=== PATIENT | male | born 1960 | race Caucasian/White ===

== ENCOUNTER 2020-08-13 17:00 | Emergency (ER) | payer OTHER, SELFPAY ==
[2020-08-13 17:00] VITALS: BP 127/65; PULSE 104; RESP 18; TEMP 35.8; O2SAT 96; BMI 31.3
--- NOTE | 2020-08-13 18:21 | ED.VIS.BACK ---
HPI History of Present Illness Chief Complaint: Back Informant: patient Onset/Context/Timing Onset: Days Context: Gradual Onset Timing: Intermittent Quality: Aching Location: Lumbar Current Severity: Moderate Maximum Severity: Severe Worsened by: improves with Movement Relieved by: Nothing Narrative Narrative: The patient is a 60-year-old male with history of chronic back pain who is on disability from back problems presents with increasing back pain. Patient states over the past 3 days, he had a lot of tightness in his low back. He states if he twists or moves, the pain is worsened. He denies any trouble urinating or moving his bowels. He denies any change in gait. He states that he was on gabapentin for some time that helped with the pain, but has not had to take it for some time. He has no history of prior back surgery. [facility] Medical History Chronic pain Home Medications hydrocodone-acetaminophen 1 tab PO Q6H PRN PRN 3 Days #10 tablet 08/13/20 [Rx Last Taken Unknown] Allergy/AdvReac Type Severity Reaction Status Date / Time acetaminophen [From Tylenol] AdvReac Other Verified 08/13/20 17:03 Social History Smoking Status: Unknown if ever smoked ROS ROS ED Constitutional Constitutional ED: Denies chills or fever(s) Eyes Eyes: Denies blurry vision or change in vision ENT ENT ED: Denies ear pain or sore throat Cardiovascular Cardiovascular: Denies chest pain or palpitations Respiratory/Chest Respiratory/Chest: Denies cough, dyspnea or dyspnea on exertion Gastrointestinal Gastrointestinal: Denies abdominal pain, nausea or vomiting Genitourinary Genitourinary ED: Denies dysuria or urinary frequency Musculoskeletal Musculoskeletal: Reports back pain; Denies arthralgias or myalgias Integumentary Denies rash Neurologic Neurologic: Denies headache(s) or paresthesias Psychiatric Psychiatric: Denies anxiety or depression Endocrine Endocrinology: Denies polydipsia or polyuria Allergic/Immunologic Allergic/Immunologic ED: Denies urticaria EXAM Physical Exam Const Vital Signs: 08/13/20 17:00 08/13/20 20:16 Temperature 96.4 F L Temperature Source Temporal Pulse Rate 104 H Respiratory Rate 18 18 Blood Pressure 127/65 H Blood Pressure Mean 85 Pulse Ox 96 Oxygen Delivery Method Room Air Positive well nourished and well developed General Appearance ED: well developed HEENT Reports normocephalic, head/scalp atraumatic and moist mucous membranes Eyes PERRL and EOMs intact bilaterally Neck no lymphadenopathy and supple General: Negative for tenderness Chest Wall inspection of chest normal Resp normal respiratory effort and clear to auscultation bilaterally Cardio regular rate, regular rhythm and no murmurs GI normal to inspection, nondistended, normoactive bowel sounds Palpation: Negative for tender, guarding or rebound tenderness present Back/Spine no CVA tenderness and normal to inspection Cervical Spine: Negative for cervical spine tenderness Thoracic Spine / Upper Back: paraspinal muscle tenderness; Negative for thoracic spinal tenderness Lumbar Spine / Lower Back: straight leg raise negative bilaterally Extremity normal to inspection General Extremety ED: Negative for tenderness Neuro oriented x3, CN's II-XII intact bilaterally and no sensory deficits noted Neuro Narrative: No focal deficits appreciated. Sensorium / Orientation: alert Motor Exam: strength 5/5 throughout Deep Tendon Reflexes: Rt Patellar (L4): 2+ and Lt Patellar (L4): 2+ Deep Tendon Reflexes Back: Rt Patellar (L4): 2+ and Lt Patellar (L4): 2+ Psych mental status grossly normal Skin no rashes or lesions noted, no wounds and skin turgor normal MDM MDM MDM Narrative Medical decision making narrative: Patient presents with an exacerbation of his back pain. His pulses are normal. His reflexes are normal. His gait is stable. I did obtain plain films. There is no evidence of acute fracture. At this point, the patient be treated the short course of analgesics and outpatient orthopedic follow-up. He is comfortable with this plan of care. Impression 1. Acute lumbar strain Lab Data Attestation: I reviewed the patient's lab results. Radiography X-Ray: LS SPine and DJD Diagnostic Testing: Radiology Impression Lumbar Spine X-Ray 08/13/20 18:45 IMPRESSION: No acute abnormality. Degenerative disc disease at L5-S1. Electronically Signed: Denzel Mayes MD at 19:07 EDT , Service support , Discharge Plan Triage Chief Complaint: Back ED Provider: Tello Lawrence Dx/Rx/DC Orders Instructions: ED Back Spasm, No Trauma Prescriptions: New hydrocodone-acetaminophen [hydrocodone-acetaminophen] 1 TABLET tablet 1 tab PO Q6H PRN PRN (Reason: Pain) 3 Days Qty: 10 RF: 0 [facility] Referrals: Darius Rojas DO [STAFF PHYSICIAN] - 2 Days for wound check [facility] [Primary Care Provider] - Disposition Disposition: Home, self care Discharge Date/Time: 08/13/20 20:17
[2020-08-13] MEDS: Ketorolac 60 MG/2 ML Vial IM (18:33)
[2020-08-13] MEDS: morphine 8 MG/ML Syringe 6 MG IM (18:33)
--- NOTE | 2020-08-13 18:45 | RAD_ITS ---
STUDY: X-RAY - LUMBAR SPINE REASON FOR EXAM: Female, 60 years old. pain TECHNIQUE: 3 view(s) of the lumbar spine were obtained. COMPARISON: None FINDINGS: Normal lumbar lordosis. There is no substantial scoliosis. There is a normal alignment of the vertebrae. There is mild multilevel endplate spondylosis of the lumbar vertebrae. Moderate degenerative disc disease at L5-S1 with prominent anterior osteophytes, otherwise normal disc space heights. There is no demonstrated fracture. There is atherosclerotic calcification of the abdominal aorta without a demonstrated aneurysm. RAD/Lumbar Spine 2 or 3 Views IMPRESSION: No acute abnormality. Degenerative disc disease at L5-S1. Electronically Signed: Denzel Mayes MD at 19:07 EDT , Service support ,
[2020-08-13 20:16] VITALS: RESP 18
== END 2020-08-13 20:17 | disposition home or self-care (01) ==
PROVIDERS: Emergency Provider Emergency Medicine
DX: S39.012A Strain of muscle, fascia and tendon of lower back, initial encounter (principal); G89.29 Other chronic pain; X58.XXXA Exposure to other specified factors, initial encounter; Y93.9 Activity, unspecified; Y92.9 Unspecified place or not applicable
CPT/HCPCS: 72100; 96372; 99282

== ENCOUNTER → 2020-08-28 17:31 | Outpatient (CLI) | payer OTHER, SELFPAY ==
[2020-08-13 17:00] VITALS: BMI 31.3
--- NOTE | 2020-08-28 17:35 | MRI_ITS ---
STUDY: MRI LUMBAR SPINE WITHOUT CONTRAST REASON FOR EXAM: Male, 60 years old. NON RADICULAR BACK PAIN TECHNIQUE: Standardized fat and water weighted pulse sequences were obtained in the sagittal and axial without contrast. COMPARISON: None FINDINGS: T12-L1: Normal endplates. Normal disc height, hydration and morphology. Normal bilateral facet joints. Normal central canal and bilateral lateral recesses. Normal bilateral intervertebral neural foramina. Normal lumbar lordosis. There is no substantial scoliosis. Normal conus medullaris that terminates at the T12-L1 L1-2: Normal endplates. Normal disc height, hydration and degenerative morphology. Normal bilateral facet joints. Normal central canal and bilateral lateral recesses. Normal bilateral intervertebral neural foramina. L2-3: Normal endplates. Normal disc height, hydration and morphology. Normal bilateral facet joints. Normal central canal and bilateral lateral recesses. Normal bilateral intervertebral neural foramina. L3-4: Normal endplates. Normal disc height, hydration and morphology. Normal bilateral facet joints. Normal central canal and bilateral lateral recesses. Normal bilateral intervertebral neural foramina. L4-5: Normal endplates. Normal disc height. There is a right central and subarticular and foraminal zone disc extrusion. Normal bilateral facet joints. There is mild canal stenosis. There is mild bilateral lateral recess stenosis... There is moderate right foraminal stenosis with patent left foramen. L5-S1: Normal endplates. Normal disc height, hydration and degenerative morphology. Normal bilateral facet joints. Normal central canal and bilateral lateral recesses. There is mild bilateral foraminal stenosis. Normal visualized sacral ala. Normal visualized paraspinous soft tissue structures. MRI/Spine Lumbar (Routine) IMPRESSION: 1. Right L4-L5 disc extrusion moderately compressing the right foramen. 2. No significant fecal sac stenosis. Electronically Signed: Surjit Mandel MD at 21:02 EDT Tel , Service support ,
== END ==
DX: M54.5 Low back pain (principal)
CPT/HCPCS: 72148